=== PATIENT | male | born 1980 | race Caucasian/White ===

== ENCOUNTER 2018-03-14 19:17 | Emergency (ER) | payer OTHER ==
[2018-03-14] MEDS: ONDANSETRON 4 MG INJ IV (19:55)
[2018-03-14] MEDS: morphine 4 MG/ML VIAL IV ×2 (19:56→21:38)
[2018-03-14] MEDS: SOD CHLORIDE 0.9% 1,000 ML IV (20:14)
[2018-03-14] MEDS: PROPOFOL 200 MG INJ IV (21:18)
== END 2018-03-14 22:28 | disposition home or self-care (01) ==
LOC: E/R 22:28
DX: S53.125A Posterior dislocation of left ulnohumeral joint, initial encounter (principal); S52.202A Unspecified fracture of shaft of left ulna, initial encounter for closed fracture; W01.198A Fall on same level from slipping, tripping and stumbling with subsequent striking against other object, initial encounter; Y92.9 Unspecified place or not applicable
CPT/HCPCS: 24600; 73080-LT; 94770; 96374; 96375; 96376; 99285-25

== ENCOUNTER 2018-09-07 22:10 | Emergency (ER) | payer OTHER ==
[2018-09-08] MEDS: IBUPROFEN 600 MG TAB PO (01:38)
== END 2018-09-08 01:55 | disposition home or self-care (01) ==
LOC: FTE 22:10
DX: M25.562 Pain in left knee (principal)
CPT/HCPCS: 99283-25; Z7502